=== PATIENT | female | born 1945 | race Caucasian/White ===

== ENCOUNTER → 2022-09-06 12:47 | Outpatient (BNVA) | payer MEDICARE, SELFPAY | PROVIDERS: PCP Internal Medicine; Visit Provider Psychiatry & Neurology Neurology | DX: F09 Unspecified mental disorder due to known physiological condition (principal) | CPT/HCPCS: 99202 ==

== ENCOUNTER 2022-09-23 14:08 | Outpatient (REF) | payer MEDICARE, SELFPAY ==
--- NOTE | ~2022-09-23 | MR_ITS ---
EXAMINATION: MR BRAIN WITHOUT CONTRAST CLINICAL INFORMATION: Cognitive behavioral changes. COMPARISON: None available. TECHNIQUE: Multiplanar, multisequence imaging of the brain was performed without intravenous contrast. FINDINGS: There is no acute infarction, hemorrhage, mass, or extra-axial fluid collection. There is diffuse prominence of the frontoparietal subarachnoid space. There is mild degree of brain parenchymal volume loss with commensurate prominence of ventricles and sulci. No disproportionate volume loss is seen. The major arterial flow voids are preserved at the skull base. The orbits appear normal. The extracranial structures are unremarkable. MR/MR head/brain wo con IMPRESSION: No acute infarct, mass lesion, intracranial hemorrhage, or evidence of hydrocephalus. Mild degree of brain parenchymal volume loss without disproportionate volume loss.
== END 2022-09-23 14:09 | disposition home or self-care (01) ==
LOC: HO.MRI 14:08
PROVIDERS: Visit Provider Psychiatry & Neurology Neurology
DX: R46.89 Other symptoms and signs involving appearance and behavior (principal); R41.89 Other symptoms and signs involving cognitive functions and awareness
CPT/HCPCS: 70551

== ENCOUNTER → 2022-12-14 09:56 | Outpatient (BNVA) | payer MEDICARE, SELFPAY | PROVIDERS: PCP Internal Medicine; Visit Provider Psychiatry & Neurology Neurology | DX: F09 Unspecified mental disorder due to known physiological condition (principal) | CPT/HCPCS: 99212 ==

== ENCOUNTER 2023-06-22 10:35 | Outpatient (AMB) | payer MEDICARE, SELFPAY ==
--- NOTE | 2023-06-22 10:47 | A.OFFVIS_ITS ---
Intake Vital Signs 06/22/23 10:49 Height 5 ft 5 in Weight 144 lb BMI 24.0 BP 118/64 Blood Pressure Location Rt brachial Position Sitting Pulse 74 Pulse Source Pulse Oximeter Pulse Oximetry (%) 94 Oxygen Delivery Method Nasal Cannula Oxygen Flow Rate 0.5 Intake Visit Reasons: 6m Follow up cognitive impairment-LVM Allergies No Known Allergies Allergy (Verified 06/22/23 10:51) Medication List - Last Reconciled 06/22/23 by Haven Villeda MD aspirin 81 mg PO DAILY atorvastatin 20 mg PO DAILY cholecalciferol (vitamin D3) 25 mcg PO DAILY divalproex 500 mg PO ONCE levothyroxine 50 mcg PO DAILY quetiapine 50 mg PO BEDTIME risperidone 1 mg PO DAILY sertraline (Zoloft) 100 mg PO DAILY HPI HPI Comments History of Present Illness Details 77y/o female with h/o bipolar disorder, COPD, S/P COVID comes for follow up she is doing good. Her mood is more stable now with change in medication doses. she feels she is not motivated.she sleeps 8 hrs a night. she makes her bed, fold laundry, unloads sw[employer] machin[employer] etc. she is accompanied by her daughter who helps with history.She reports increasing cognitive issues for over 1 year. she frequently forgets conversations, repeats questions, trouble with birthdays, misplaces things around the house, forgets to take medications, difficulty following instructions etc. she lives with her male friend. she has poor mobility - needs help with preparing food, grocery shopping etc. she can dress and shower without help. she has difficulty making important decisions in regards to rental property, properties and finances.Her daughter ( Breanna Garner)is the HCP and POA . she has h/o bipolar and is stable now.she has a psychologist and a prescriber. she denies hallucinations or delusions or behavior issues No vivid dreams she sleeps good . [facility] Medical History Cognitive disorder Diverticulosis Cholecystitis Shoulder pain Bipolar 1 disorder Hyperlipidemia Hypothyroidism Aortic stenosis Osteopenia Abdominal aortic aneurysm Lung nodule Chronic respiratory failure with hypoxia Surgical History History of tonsillectomy Hx of shoulder surgery H/O colonoscopy Family History Sister Breast CA Paternal Grandfather Lung cancer Mother Lung cancer Father Arthritis Daughter Thyroid disorder Social History Alcohol intake: current Patient Tobacco Use Status: Current everyday Tobacco user Use of substances other than those prescribed or required for medical reasons: No Physical Exam Vital Signs: Last Vital Signs Pulse 74 06/22/23 10:49 BP 118/64 06/22/23 10:49 Pulse Ox 94 06/22/23 10:49 Oxygen Delivery Method Nasal Cannula 06/22/23 10:49 Oxygen Flow Rate 0.5 06/22/23 10:49 BMI result Body Mass Index 24.0 Const General: cooperative and comfortable Nutritional Appearance: average body habitus Orientation/consciousness: patient oriented x3 Limitations: physical limitations HEENT Head: Yes normal to inspection and Yes normocephalic Face and sinus: Yes normal facial exam Eyes Pupils: Equal, round and reactive pupils present Neuro General: patient oriented x3, tone normal and moves all extremities Cranial nerves: Yes Facial sensation intact/muscles of mastication intact, Yes Equal, round and reactive pupils present, Yes Bilaterally intact EOM present, Yes Nystagmus not present, Yes Normal facial strength present, Yes Midline tongue present and Yes Symmetric palate elevation present Cognition (Neuro): normal cognition Gait exam (Neuro): Antalgic gait present Motor exam (neuro): 5/5 motor strength present throughout and Normal motor muscle tone present throughout Coordination: [id number] test normal Orientation What is the (year) (season) (date) (day) (month)?: year, season, date, day and month Where are we (state) (county) (town or city) (hospital) (floor)?: state, county, town or city, hospital/clinic and floor Registration Name of 3 unrelated objects clearly and slowly, then ask patient to repeat all 3 of them. (1st repeat determines score. Make sure they can repeat all three): object 1, object 2 and object 3 Attention & Calculation (CHOOSE ONE) Spell WORLD backwards (DLROW): 5 letters Recall Ask patient to repeat the 3 items from question #3.: object 1 and object 3 Language Show patient a wristwatch & ask what it is. Repeat for pencil.: watch and pencil Ask the patient to repeat the phrase 'No ifs, ands, or buts' after you.: correct Ask the patient to 'take a piece of paper with their right hand' 'fold paper in half' 'place paper on floor': take paper in right hand, fold paper in half and place paper on floor Print the sentence 'CLOSE YOUR EYES' on a piece. If patient actually closes eyes then score.: followed written direction Give patient a blank piece of paper & ask to write a sentence. Score if it contains a noun & verb.: sentence contains subject and verb Ask patient to copy figure of intersecting pentagons exactly. 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
[2023-06-22 10:49] VITALS: BP 118/64; PULSE 74; O2SAT 94; BMI 24.0
== END 2023-06-22 11:12 | disposition home or self-care (01) ==
PROVIDERS: PCP Internal Medicine; Visit Provider Psychiatry & Neurology Neurology
DX: G31.84 Mild cognitive impairment of uncertain or unknown etiology (principal)
CPT/HCPCS: 99213

== ENCOUNTER → 2023-06-22 10:35 | Outpatient (BNVA) | payer MEDICARE, SELFPAY | PROVIDERS: PCP Internal Medicine; Visit Provider Psychiatry & Neurology Neurology | DX: F09 Unspecified mental disorder due to known physiological condition (principal) | CPT/HCPCS: 99212 ==